=== PATIENT | male | born 1945 | race Caucasian/White ===

== ENCOUNTER 2018-12-15 15:21 | Emergency (ER) | payer MEDICARE ==
[2018-12-15 15:50] VITALS: RESP 18; TEMP 97.8
[2018-12-15] MEDS ORDERED: IPRATROPIUM-ALBUTEROL 3 ML NEB INHALATION STA (16:43)
--- NOTE | 2018-12-15 16:46 | ED ---
General Adult HPI - General Chief complaint: Upper Respiratory Infection Stated complaint: Cough Time Seen by Provider: 12/15/18 16:10 Source: patient, RN notes reviewed Mode of arrival: ambulatory Limitations: no limitations - History of Present Illness Initial comments: 73-year-old male with a past medical history of GERD, prostate disorder, orthopedic surgery presents to the emergency room for a chief complaint of cough 1 week. Patient states he thinks he has bronchitis. States he has been coughing up yellow phlegm for the past week. States he has sinus congestion as well. Patient denies shortness of breath or chest pain. Denies any fevers or chills. Denies any sore throat. Denies ear pain or popping. No abdominal pain.Patient has no other complaints at this time including shortness of breath, chest pain, abdominal pain, nausea or vomiting, headache, or visual changes. - Related Data Home Medications Medication Instructions Recorded Confirmed Tamsulosin HCl [Flomax] 0.4 mg PO PC-SUPPER 12/15/18 12/15/18 Previous Rx's Medication Instructions Recorded Albuterol Inhaler [Ventolin Hfa 1 - 2 puff INHALATION Q6HR PRN #1 12/15/18 Inhaler] inhaler Azithromycin [Zithromax Z-pack] 250 mg PO DIRECTED #6 tab 12/15/18 predniSONE 50 mg PO DAILY #5 tablet 12/15/18 Allergies Allergy/AdvReac Type Severity Reaction Status Date / Time No Known Allergies Allergy Verified 12/15/18 17:11 Review of Systems ROS Statement: Those systems with pertinent positive or pertinent negative responses have been documented in the HPI. ROS Other: All systems not noted in ROS Statement are negative. Past Medical History Past Medical History: GERD/Reflux, Prostate Disorder History of Any Multi-Drug Resistant Organisms: None Reported Past Surgical History: Hernia Repair, Orthopedic Surgery Past Psychological History: No Psychological Hx Reported Smoking Status: Never smoker Past Alcohol Use History: Occasional Past Drug Use History: None Reported General Exam Limitations: no limitations General appearance: alert, in no apparent distress Head exam: Present: atraumatic, normocephalic, normal inspection Eye exam: Present: normal appearance, PERRL, EOMI. Absent: scleral icterus, conjunctival injection, periorbital swelling ENT exam: Present: normal exam, normal oropharynx, mucous membranes moist, TM's normal bilaterally, normal external ear exam Neck exam: Present: normal inspection, full ROM. Absent: tenderness, meningismus, lymphadenopathy Respiratory exam: Present: wheezes (Wheezing noted in all lung fierro). Absent: respiratory distress, rales, rhonchi, stridor Cardiovascular Exam: Present: regular rate, normal rhythm, normal heart sounds. Absent: systolic murmur, diastolic murmur, rubs, gallop, clicks GI/Abdominal exam: Present: soft, normal bowel sounds. Absent: distended, tenderness, guarding, rebound, rigid Neurological exam: Present: alert, oriented X3, CN II-XII intact Psychiatric exam: Present: normal affect, normal mood Course Vital Signs 12/15/18 12/15/18 12/15/18 15:47 17:14 17:25 Temperature 97.8 F Pulse Rate 57 L 58 L 58 L Respiratory 18 Rate Blood Pressure 142/80 O2 Sat by Pulse 97 Oximetry 12/15/18 17:50 Temperature Pulse Rate 59 L Respiratory 18 Rate Blood Pressure 143/80 O2 Sat by Pulse 97 Oximetry Medical Decision Making - Medical Decision Making 73-year-old male with a past medical history of GERD, orthopedic surgery presents for productive cough times one week. Coughing up yellow phlegm. No fevers or chills. Does have sinus congestion. It is her stable, patient is not tachycardic or febrile. On exam patient does have wheezing noted in the bilateral lung fierro. CBC and CMP are unremarkable. Lactic 1.1. Troponin less than 0.012 however denying any chest pain or shortness of breath. Chest x- ray does show no active cardio pulmonary disease. Discussed the patient he is comfortable going home after receiving breathing treatment. Patient will be given site Medrol here. He will be given prednisone and azithromycin. Will follow up with primary care in 1-2 days or return here if he has any worsening symptoms. - Lab Data Result diagrams: 12/15/18 17:17 12/15/18 17:17 Lab Results 12/15/18 12/15/18 12/15/18 Range/Units 17:17 17:17 17:17 WBC 7.4 (3.8-10.6) k/uL RBC 5.09 (4.30-5.90) m/uL Hgb 15.1 (13.0-17.5) gm/dL Hct 46.3 (39.0-53.0) % MCV 90.9 (80.0-100.0) fL MCH 29.6 (25.0-35.0) pg MCHC 32.6 (31.0-37.0) g/dL RDW 13.6 (11.5-15.5) % Plt Count 192 (150-450) k/uL Neutrophils % 67 % Lymphocytes % 20 % Monocytes % 6 % Eosinophils % 4 % Basophils % 1 % Neutrophils # 4.9 (1.3-7.7) k/uL Lymphocytes # 1.4 (1.0-4.8) k/uL Monocytes # 0.4 (0-1.0) k/uL Eosinophils # 0.3 (0-0.7) k/uL Basophils # 0.1 (0-0.2) k/uL PT (9.0-12.0) sec INR (<1.2) Sodium 140 (137-145) mmol/L Potassium 4.1 (3.5-5.1) mmol/L Chloride 107 (98-107) mmol/L Carbon Dioxide 23 (22-30) mmol/L Anion Gap 10 mmol/L BUN 18 (9-20) mg/dL Creatinine 0.69 (0.66-1.25) mg/dL Est GFR (CKD-EPI)AfAm >90 (>60 ml/min/1.73 sqM) Est GFR (CKD-EPI)NonAf >90 (>60 ml/min/1.73 sqM) Glucose 87 (74-99) mg/dL Plasma Lactic Acid Luis Carlos 1.1 (0.7-2.0) mmol/L Calcium 9.5 (8.4-10.2) mg/dL Total Bilirubin 0.6 (0.2-1.3) mg/dL AST 27 (17-59) U/L ALT 22 (21-72) U/L Alkaline Phosphatase 86 (38-126) U/L Troponin I (0.000-0.034) ng/mL NT-Pro-B Natriuret Pep pg/mL Total Protein 7.5 (6.3-8.2) g/dL Albumin 4.3 (3.5-5.0) g/dL 12/15/18 12/15/18 12/15/18 Range/Units 17:17 17:17 17:17 WBC (3.8-10.6) k/uL RBC (4.30-5.90) m/uL Hgb (13.0-17.5) gm/dL Hct (39.0-53.0) % MCV (80.0-100.0) fL MCH (25.0-35.0) pg MCHC (31.0-37.0) g/dL RDW (11.5-15.5) % Plt Count (150-450) k/uL Neutrophils % % Lymphocytes % % Monocytes % % Eosinophils % % Basophils % % Neutrophils # (1.3-7.7) k/uL Lymphocytes # (1.0-4.8) k/uL Monocytes # (0-1.0) k/uL Eosinophils # (0-0.7) k/uL Basophils # (0-0.2) k/uL PT 10.1 (9.0-12.0) sec INR 0.9 (<1.2) Sodium (137-145) mmol/L Potassium (3.5-5.1) mmol/L Chloride (98-107) mmol/L Carbon Dioxide (22-30) mmol/L Anion Gap mmol/L BUN (9-20) mg/dL Creatinine (0.66-1.25) mg/dL Est GFR (CKD-EPI)AfAm (>60 ml/min/1.73 sqM) Est GFR (CKD-EPI)NonAf (>60 ml/min/1.73 sqM) Glucose (74-99) mg/dL Plasma Lactic Acid Luis Carlos (0.7-2.0) mmol/L Calcium (8.4-10.2) mg/dL Total Bilirubin (0.2-1.3) mg/dL AST (17-59) U/L ALT (21-72) U/L Alkaline Phosphatase (38-126) U/L Troponin I <0.012 (0.000-0.034) ng/mL NT-Pro-B Natriuret Pep 77 pg/mL Total Protein (6.3-8.2) g/dL Albumin (3.5-5.0) g/dL Disposition Clinical Impression: Cough Disposition: HOME SELF-CARE Condition: Good Instructions (If sedation given, give patient instructions): Acute Cough (ED) Additional Instructions: Please take prescription as directed. Start antibiotic tonight but wait until tomorrow to take steroid. Follow up with primary care in 1-2 days. If youre having worsening symptoms return here to the emergency department. Prescriptions: predniSONE 50 mg PO DAILY #5 tablet Albuterol Inhaler [Ventolin Hfa Inhaler] 1 - 2 puff INHALATION Q6HR PRN #1 inhaler PRN Reason: Shortness Of Breath Azithromycin [Zithromax Z-pack] 250 mg PO DIRECTED #6 tab Is patient prescribed a controlled substance at d/c from ED?: No Referrals: Nonstaff,Physician [Primary Care Provider] - 1-2 days Time of Disposition: 18:41
[2018-12-15 17:29] LABS: Basophils # (A) 0.1 k/uL (0-0.2); Basophils % (A) 1 %; Eosinophils # (A) 0.3 k/uL (0-0.7); Eosinophils % (A) 4 %; HCT 46.3 % (39.0-53.0); HGB 15.1 gm/dL (13.0-17.5); Lymphocytes # (A) 1.4 k/uL (1.0-4.8); Lymphocytes % (A) 20 %; MCH 29.6 pg (25.0-35.0); MCHC 32.6 g/dL (31.0-37.0); MCV 90.9 fL (80.0-100.0); Monocytes # (A) 0.4 k/uL (0-1.0); Monocytes % (A) 6 %; Neutrophils # (A) 4.9 k/uL (1.3-7.7); Neutrophils % (A) 67 %; Platelet Count 192 k/uL (150-450); RBC 5.09 m/uL (4.30-5.90); RDW 13.6 % (11.5-15.5); WBC 7.4 k/uL (3.8-10.6)
[2018-12-15 17:44] LABS: INR 0.9 (<1.2); Prothrombin Time 10.1 sec (9.0-12.0)
[2018-12-15] MEDS: SODIUM CHLORIDE 0.9% 500 ML 500 ML IV SCH (17:50)
[2018-12-15 17:52] VITALS: PULSE 59
[2018-12-15 17:54] LABS: ALT 22 U/L (21-72); AST 27 U/L (17-59); Albumin 4.3 g/dL (3.5-5.0); Alkaline Phosphatase 86 U/L (38-126); Anion Gap 10 mmol/L; Blood Urea Nitrogen 18 mg/dL (9-20); Calcium 9.5 mg/dL (8.4-10.2); Carbon Dioxide 23 mmol/L (22-30); Chloride 107 mmol/L (98-107); Glucose 87 mg/dL (74-99); Potassium 4.1 mmol/L (3.5-5.1); Sodium 140 mmol/L (137-145); Total Bilirubin 0.6 mg/dL (0.2-1.3); Total Protein 7.5 g/dL (6.3-8.2)
--- NOTE | 2018-12-15 18:18 | XR ---
EXAMINATION TYPE: XR chest 2V DATE OF EXAM: 12/15/2018 COMPARISON: NONE HISTORY: Cough and fever TECHNIQUE: Frontal and lateral views of the chest are obtained. FINDINGS: There is no heart failure nor confluent pneumonic infiltrate. 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 There is no pleural effusion. Heart and mediastinum are normal. IMPRESSION: No active cardiopulmonary disease. Normal heart.
[2018-12-15] MEDS ORDERED: methylPREDNISolone SOD SUCCI 125 MG/2 ML VIAL IV STA (18:26)
[2018-12-15 19:23] VITALS: BP 134/89
== END 2018-12-15 19:25 | disposition home or self-care (01) ==
LOC: EDBD → EC 15:21
DX: R05 Cough (principal); R09.89 Other specified symptoms and signs involving the circulatory and respiratory systems; N42.9 Disorder of prostate, unspecified; Z79.899 Other long term (current) drug therapy
CPT/HCPCS: 36415; 94640; 83880; 80053; 83605; 84484; 85025; 85610; 87040; 71046; 99284; 96374; 96361; J2930